=== PATIENT | male | born 1990 | race Caucasian/White ===

== ENCOUNTER 2021-09-24 20:00 | Outpatient (CLI) | payer OTHER, SELFPAY | END 2021-09-24 20:01 | disposition home or self-care (01) | LOC: SLEEP 09-25 09:02 | PROVIDERS: Visit Provider Nurse Practitioner | DX: R06.83 Snoring (principal) | CPT/HCPCS: 95810 ==

== ENCOUNTER 2021-12-17 20:00 | Outpatient (CLI) | payer OTHER, SELFPAY | END 2021-12-17 20:01 | disposition home or self-care (01) | LOC: SLEEP 12-18 08:12 | PROVIDERS: Visit Provider Nurse Practitioner | DX: G47.33 Obstructive sleep apnea (adult) (pediatric) (principal) | CPT/HCPCS: 95811 ==